=== PATIENT | female | born 1985 | race Caucasian/White ===

== ENCOUNTER 2018-09-12 06:40 | Emergency (ER) | payer MEDICAID ==
[2018-09-12] MEDS: predniSONE 20 MG TAB PO (07:12)
[2018-09-12] MEDS: KETOROLAC 30 MG INJ IM (07:17)
== END 2018-09-12 07:41 | disposition home or self-care (01) ==
LOC: FTE 06:40
DX: G56.03 Carpal tunnel syndrome, bilateral upper limbs (principal)
CPT/HCPCS: 29125; 81025; 96372; 99284-25